=== PATIENT | male | born 1995 | race Hispanic/Latino ===

== ENCOUNTER 2021-06-26 07:47 | Inpatient (IN) | payer OTHER ==
[2021-06-26 08:12] LABS: #Basophils 0.1 thou/uL (0.0-0.2); #Eosinphils 0.4 thou/uL (0.0-0.7); #Lymphocytes 3.4 thou/uL (1.20-3.40); #Neutrophils 9.8 thou/uL (1.40-6.50); %Basophils 0.7 % (0.0-1.0); %Eosinophils 2.4 % (0.0-10.0); %Lymphocytes 23.3 % (21.0-51.0); %Monocytes 6.5 % (0.0-10.0); %Neutrophils 67.2 % (42.0-75.0); Hemoglobin 16.1 g/dL (14.0-18.0); Mean Corpuscular HGB CONC 32.3 g/dL (32.0-36.0); Mean Corpuscular Volume 93.1 fL (78.0-98.0); Mean Platelet Volume 8.4 fL (7.4-10.4); Platelet Count 203 thou/uL (130-400); RBC Distribution Width 11.6 % (11.5-14.5); Red Blood Cell (RBC) Count 5.36 mill/uL (4.70-6.10); White Blood Cell (WBC) Count 14.6 thou/uL (4.8-10.8)
[2021-06-26] MEDS ORDERED: Boostrix 0.5 ML (Tdap) VIAL ONE (08:21)
[2021-06-26] MEDS ORDERED: CEFAZOLIN 1 GM VIAL ONE (08:21)
[2021-06-26 08:25] LABS: INR-International Normal Ratio 1.1; PTT 29.6 sec (22.9-36.1); Prothrombin Time 14.7 sec (12.0-14.7)
[2021-06-26 08:29] LABS: ALT (SGPT) 71 U/L (8-55); AST (SGOT) 109 U/L (5-34); Albumin 3.7 g/dL (3.5-5.0); Alkaline Phosphatase 123 U/L (40-110); Anion Gap 11 mmol/L (10-20); BUN (Urea Nitrogen) 13 mg/dL (8.9-20.6); Bilirubin, Total 0.4 mg/dL (0.2-1.2); CK (CPK) 694 U/L (30-200); Calc. Creatinine Clearance 0 mL/min (70-130); Calcium 8.3 mg/dL (7.8-10.44); Carbon Dioxide 22 mmol/L (22-29); Chloride 106 mmol/L (98-107); Globulin 3.4 g/dL (2.4-3.5); Glucose 145 mg/dL (70-105); Potassium 3.8 mmol/L (3.5-5.1); Protein, Total 7.1 g/dL (6.0-8.3); Sodium 135 mmol/L (136-145)
[2021-06-26] MEDS ORDERED: Ondansetron ODT 4 MG TAB PO PRN (08:43)
[2021-06-26] MEDS ORDERED: Fentanyl 100 MCG/2 ML VIAL ONE (08:44)
[2021-06-26] MEDS ORDERED: Bacitracin 1 PK ONE (08:51)
[2021-06-26 09:00] LABS: Band 11 % (5-11); Eosinophils 1 % (0-10); Lymphocytes 25 % (21-51); MDiff Complete? YES; Metamyelocyte 1 % (0-0); Monocytes 6 % (0-10); Neutrophil 52 % (42-75); RBC Morphology Normal; Reactive Lymphocytes 3 % (0-10)
[2021-06-26] MEDS ORDERED: Morphine 4 MG/ML VIAL ONE (10:55)
[2021-06-26] MEDS ORDERED: Ketorolac Tromethamine 30 MG/ML VIAL ONE (10:55)
[2021-06-26 10:56] LABS: Lactic Acid 1.6 mmol/L (0.5-2.2)
[2021-06-26] MEDS: traMADol HCl 50 MG TAB PO PRN ×2 (12:46→23:16)
[2021-06-26] MEDS: Acetaminophen 500 MG TAB PO SCH ×3 (12:46→23:14)
[2021-06-26] MEDS: Sodium Chloride 0.9% 1,000 ML IV SCH ×3 (12:48→23:34)
[2021-06-26] MEDS: traMADol HCl 50 MG TAB PO SCH ×3 (13:54→21:01)
[2021-06-26] MEDS: Famotidine/PF 20 mg/2ml Vial SLOW IVP SCH ×2 (13:54→21:04)
[2021-06-26 16:35] VITALS: BMI 23.0
[2021-06-26 21:01] LABS: SARS-CoV-2 PCR by NAA Not Detected (NotDetected)
[2021-06-26] MEDS: Cyclobenzaprine 10 MG TAB PO PRN (21:03)
[2021-06-27] MEDS: traMADol HCl 50 MG TAB PO SCH ×4 (03:29→20:05)
[2021-06-27 05:49] LABS: #Eosinphils 0.1 thou/uL (0.0-0.7); #Lymphocytes 1.8 thou/uL (1.20-3.40); #Monocytes 0.7 thou/uL (0.11-0.59); #Neutrophils 4.1 thou/uL (1.40-6.50); %Basophils 0.1 % (0.0-1.0); %Eosinophils 2.2 % (0.0-10.0); %Lymphocytes 27.1 % (21.0-51.0); %Monocytes 10.2 % (0.0-10.0); %Neutrophils 60.4 % (42.0-75.0); Hemoglobin 13.5 g/dL (14.0-18.0); Mean Corpuscular HGB CONC 33.1 g/dL (32.0-36.0); Mean Corpuscular Volume 93.6 fL (78.0-98.0); Mean Platelet Volume 8.4 fL (7.4-10.4); Platelet Count 167 thou/uL (130-400); RBC Distribution Width 11.6 % (11.5-14.5); Red Blood Cell (RBC) Count 4.35 mill/uL (4.70-6.10); White Blood Cell (WBC) Count 6.8 thou/uL (4.8-10.8)
[2021-06-27 05:51] LABS: Lactic Acid 0.9 mmol/L (0.5-2.2)
[2021-06-27 06:06] LABS: Phosphorus 2.8 mg/dL (2.3-4.7)
[2021-06-27 06:07] LABS: ALT (SGPT) 67 U/L (8-55); AST (SGOT) 137 U/L (5-34); Albumin 3.1 g/dL (3.5-5.0); Alkaline Phosphatase 71 U/L (40-110); Bilirubin, Direct 0.2 mg/dL (0.1-0.3); Bilirubin, Total 0.5 mg/dL (0.2-1.2); Protein, Total 5.7 g/dL (6.0-8.3)
[2021-06-27 06:15] LABS: Anion Gap 6 mmol/L (10-20); BUN (Urea Nitrogen) 9 mg/dL (8.9-20.6); Calc. Creatinine Clearance 127 mL/min (70-130); Calcium 7.9 mg/dL (7.8-10.44); Carbon Dioxide 26 mmol/L (22-29); Chloride 109 mmol/L (98-107); Glucose 99 mg/dL (70-105); Magnesium 1.9 mg/dL (1.6-2.6); Potassium 3.9 mmol/L (3.5-5.1); Sodium 137 mmol/L (136-145)
[2021-06-27] MEDS: Acetaminophen 500 MG TAB PO SCH (06:27)
[2021-06-27 06:28] LABS: CK (CPK) 4693 U/L (30-200)
[2021-06-27] MEDS: Sodium Chloride 0.9% 1,000 ML IV SCH ×3 (08:50→21:34)
[2021-06-27] MEDS ORDERED: FLU VACC QS2021-22(6MOS UP)/PF 60 MCG/0.5 ML SYRINGE IM ONE (09:00)
[2021-06-27] MEDS: Enoxaparin Sodium 40 MG/0.4 ML SYRINGE SC SCH (09:27)
[2021-06-27] MEDS: Acetaminophen 325 MG TAB PO SCH ×2 (09:28→15:19)
[2021-06-27] MEDS: Famotidine/PF 20 mg/2ml Vial SLOW IVP SCH (09:30)
[2021-06-27] MEDS: Pregabalin 50 MG CAP PO SCH ×2 (09:46→20:07)
[2021-06-27] MEDS ORDERED: Ibuprofen 200 MG TAB PO SCH (17:00)
[2021-06-27] MEDS: Ketorolac Tromethamine 30 MG/ML VIAL IVP SCH (17:56)
[2021-06-27] MEDS: Senokot S 8.6-50 MG TAB PO SCH (20:05)
[2021-06-28] MEDS: Ketorolac Tromethamine 30 MG/ML VIAL IVP SCH (00:55)
[2021-06-28] MEDS: Acetaminophen 500 MG TAB PO SCH (00:56)
[2021-06-28] MEDS: Acetaminophen 325 MG TAB PO SCH ×4 (00:59→22:59)
[2021-06-28] MEDS: traMADol HCl 50 MG TAB PO SCH ×4 (03:56→20:29)
[2021-06-28] MEDS: Sodium Chloride 0.9% 1,000 ML IV SCH (03:58)
[2021-06-28 05:52] LABS: ALT (SGPT) 72 U/L (8-55); AST (SGOT) 142 U/L (5-34); Albumin 3.2 g/dL (3.5-5.0); Alkaline Phosphatase 79 U/L (40-110); Anion Gap 9 mmol/L (10-20); BUN (Urea Nitrogen) 7 mg/dL (8.9-20.6); Bilirubin, Direct 0.2 mg/dL (0.1-0.3); Bilirubin, Total 0.4 mg/dL (0.2-1.2); Calc. Creatinine Clearance 134 mL/min (70-130); Calcium 8.3 mg/dL (7.8-10.44); Carbon Dioxide 24 mmol/L (22-29); Chloride 109 mmol/L (98-107); Glucose 98 mg/dL (70-105); Magnesium 1.8 mg/dL (1.6-2.6); Phosphorus 2.8 mg/dL (2.3-4.7); Potassium 3.8 mmol/L (3.5-5.1); Sodium 138 mmol/L (136-145)
[2021-06-28 06:06] LABS: CK (CPK) 4822 U/L (30-200)
[2021-06-28] MEDS: Ibuprofen 200 MG TAB PO SCH ×3 (06:36→22:59)
[2021-06-28] MEDS ORDERED: Digoxin 0.5 MG/2 ML AMP SLOW IVP SCH (06:45)
[2021-06-28] MEDS: Enoxaparin Sodium 40 MG/0.4 ML SYRINGE SC SCH (08:39)
[2021-06-28] MEDS: Senokot S 8.6-50 MG TAB PO SCH ×2 (08:40→20:29)
[2021-06-28] MEDS: Pregabalin 50 MG CAP PO SCH ×2 (08:41→20:28)
[2021-06-28] MEDS: Polyethylene Glycol 3350 17 GM Packet PO SCH (08:42)
[2021-06-28] MEDS: Cyclobenzaprine 10 MG TAB PO PRN (08:42)
[2021-06-28] MEDS ORDERED: CIPROFLOXACIN 0.3% R EAR SCH (09:00)
[2021-06-28] MEDS ORDERED: Sodium Chloride 0.9% 1,000 ML IV SCH (20:15)
[2021-06-29] MEDS: traMADol HCl 50 MG TAB PO SCH ×3 (03:23→15:59)
[2021-06-29] MEDS: Ibuprofen 200 MG TAB PO SCH ×2 (05:26→15:58)
[2021-06-29 06:05] LABS: Anion Gap 11 mmol/L (10-20); BUN (Urea Nitrogen) 10 mg/dL (8.9-20.6); CK (CPK) 3129 U/L (30-200); Calc. Creatinine Clearance 130 mL/min (70-130); Calcium 8.8 mg/dL (7.8-10.44); Carbon Dioxide 25 mmol/L (22-29); Chloride 106 mmol/L (98-107); Glucose 97 mg/dL (70-105); Magnesium 1.9 mg/dL (1.6-2.6); Phosphorus 4.8 mg/dL (2.3-4.7); Sodium 138 mmol/L (136-145)
[2021-06-29] MEDS: Senokot S 8.6-50 MG TAB PO SCH (09:07)
[2021-06-29] MEDS: Enoxaparin Sodium 40 MG/0.4 ML SYRINGE SC SCH (09:07)
[2021-06-29] MEDS: Pregabalin 50 MG CAP PO SCH (09:07)
[2021-06-29] MEDS: Polyethylene Glycol 3350 17 GM Packet PO SCH (09:08)
[2021-06-29] MEDS: Acetaminophen 325 MG TAB PO SCH ×2 (09:11→17:10)
[2021-06-29 15:36] VITALS: BP 123/80; TEMP 97.9
== END 2021-06-29 17:00 | disposition home or self-care (01) | DRG 964 ==
LOC: EDBD 07:47 → ERS 07:47 → SURG B 08:43 → OBSVTOIN 06-27 13:46
PROVIDERS: ADMIT Surgery; ATTEND Surgery
DX: S22.080A Wedge compression fracture of T11-T12 vertebra, initial encounter for closed fracture (principal); S06.6X0A Traumatic subarachnoid hemorrhage without loss of consciousness, initial encounter; S27.322A Contusion of lung, bilateral, initial encounter; S32.010A Wedge compression fracture of first lumbar vertebra, initial encounter for closed fracture; S09.21XA Traumatic rupture of right ear drum, initial encounter; T79.6XXA Traumatic ischemia of muscle, initial encounter; S42.022A Displaced fracture of shaft of left clavicle, initial encounter for closed fracture; V64.6XXA Passenger in heavy transport vehicle injured in collision with heavy transport vehicle or bus in traffic accident, initial encounter; R40.2411 Glasgow coma scale score 13-15, in the field [EMT or ambulance]; S00.03XA Contusion of scalp, initial encounter
CPT/HCPCS: 36415; 70450; 70486; 71045; 71260; 72125; 74177; 80048; 80053; 80076; 82550; 83605; 83735; 84100; 84484; 85025; 85610; 85730; 86850; 86900; 86901; 90715; 93005; 94760; 96372; 96375; 96376; G0378; G0390; J0690; J1650; J1885; J2270; J3010; J7050; S0028; U0003; U0005

== ENCOUNTER 2021-08-21 13:38 | Outpatient (CLI) | payer OTHER | END 2021-08-21 13:39 | disposition home or self-care (01) | LOC: TBSIIMAG 13:38 | PROVIDERS: ATTEND Neurological Surgery | DX: S22.009D Unspecified fracture of unspecified thoracic vertebra, subsequent encounter for fracture with routine healing (principal) | CPT/HCPCS: 72072; 72100 ==

== ENCOUNTER 2021-10-24 10:56 | Outpatient (CLI) | payer OTHER | END 2021-10-24 10:57 | disposition home or self-care (01) | LOC: TBSIIMAG 10:56 | PROVIDERS: ATTEND Physician Assistant | DX: S32.010D Wedge compression fracture of first lumbar vertebra, subsequent encounter for fracture with routine healing (principal); S22.080D Wedge compression fracture of T11-T12 vertebra, subsequent encounter for fracture with routine healing | CPT/HCPCS: 72100 ==

== ENCOUNTER 2023-02-16 13:35 | Emergency (ER) | payer OTHER, SELFPAY ==
[2023-02-16 14:22] LABS: #Basophils 0.1 thou/uL (0.0-0.2); #Monocytes 1.5 thou/uL (0.11-0.59); #Neutrophils 17.2 thou/uL (1.40-6.50); %Basophils 0.3 % (0.0-1.0); %Eosinophils 0.1 % (0.0-10.0); %Lymphocytes 10.5 % (21.0-51.0); %Monocytes 7.2 % (0.0-10.0); %Neutrophils 81.3 % (42.0-75.0); Hematocrit 44.3 % (42.0-52.0); Mean Corpuscular HGB CONC 33.9 g/dL (32.0-36.0); Mean Corpuscular Hemoglobin 28.7 pg (27.0-31.0); Mean Corpuscular Volume 84.7 fl (78.0-98.0); Platelet Count 231 10x3/uL (130-400); Red Blood Cell (RBC) Count 5.23 mill/uL (4.70-6.10); White Blood Cell (WBC) Count 21.1 10x3/uL (4.8-10.8)
[2023-02-16] MEDS ORDERED: Ibuprofen 200 MG TAB ONE (14:29)
[2023-02-16 14:46] LABS: ALT (SGPT) 19 U/L (8-55); AST (SGOT) 20 U/L (5-34); Albumin 4.7 g/dL (3.5-5.0); Alkaline Phosphatase 91 U/L (40-110); Anion Gap 13 mmol/L (10-20); BUN (Urea Nitrogen) 11 mg/dL (8.9-20.6); Bilirubin, Total 1.1 mg/dL (0.2-1.2); Calc. Creatinine Clearance 0 mL/min (70-130); Calcium 9.2 mg/dL (7.8-10.44); Carbon Dioxide 25 mmol/L (22-29); Chloride 102 mmol/L (98-107); Estimated GFR 119; Globulin 3.1 g/dL (2.4-3.5); Glucose 116 mg/dL (70-105); Potassium 3.8 mmol/L (3.5-5.1); Protein, Total 7.8 g/dL (6.0-8.3); Sodium 136 mmol/L (136-145)
[2023-02-16 15:46] LABS: SARS-CoV-2 NAA Rapid Test Not Detected (NotDetected)
== END 2023-02-16 16:17 | disposition home or self-care (01) ==
LOC: ERS 13:35
DX: S93.401A Sprain of unspecified ligament of right ankle, initial encounter (principal); R50.9 Fever, unspecified; Z20.822 Contact with and (suspected) exposure to COVID-19; W17.89XA Other fall from one level to another, initial encounter; Y92.009 Unspecified place in unspecified non-institutional (private) residence as the place of occurrence of the external cause
CPT/HCPCS: 36415; 80053; 85025